=== PATIENT | female | born 1935 | race Caucasian/White ===

== ENCOUNTER 2017-12-13 14:35 | Emergency (ER) | payer MEDICARE, BC | END 2017-12-13 17:21 | disposition home or self-care (01) | LOC: D.ER 14:35 | DX: S40.012A Contusion of left shoulder, initial encounter (principal); S80.02XA Contusion of left knee, initial encounter; S30.0XXA Contusion of lower back and pelvis, initial encounter; S20.212A Contusion of left front wall of thorax, initial encounter; W01.0XXA Fall on same level from slipping, tripping and stumbling without subsequent striking against object, initial encounter; Y93.89 Activity, other specified; Y92.129 Unspecified place in nursing home as the place of occurrence of the external cause; G30.9 Alzheimer's disease, unspecified; F02.80 Dementia in other diseases classified elsewhere, unspecified severity, without behavioral disturbance, psychotic disturbance, mood disturbance, and anxiety; Z86.59 Personal history of other mental and behavioral disorders ==

== ENCOUNTER 2020-03-22 16:06 | Inpatient (IN) | payer MEDICARE, BC ==
[~2020-03-22] VITALS: Ht 170.2 cm; Wt 105.9 kg
--- NOTE | 2020-03-22 16:00 | NUR ---
NEW ADMIT TO DOCTOR HORVATH FROM [facility] FOR YELLING, SCREAMING, AND SWATTING AT OTHER RESIDENTS. PATIENT TRANSPORTED TO [facility] VIA [facility]. UPON ARRIVAL TO UNIT, PATIENT WAS CALM AND COOPERATIVE WITH CARE AND ADMISSION. CONSENTS TO TREAT RECEIVED FROM JUSTYNA RILEY, HILARIA AND DEEPAK. DNR CODE STATUS ALSO RECEIVED FROM JUSTYNA RILEY. CODE WORD GIVEN TO SON. PATIENT ORIENTED TO UNIT, ROOM, AND CALL [facility].
[2020-03-22 16:42] VITALS: BP 154/73
[2020-03-22 18:13] LABS: BILIRUBIN NEGATIVE (NEGATIVE); GLUCOSE NEGATIVE (NEGATIVE); KETONE NEGATIVE (NEGATIVE); NITRITE POSITIVE (NEGATIVE); RED CELLS - URINE OCC /hpf (0-5); UROBILINOGEN NORMAL (NORMAL); WHITE CELLS - URINE 0-5 /hpf (NEGATIVE)
[2020-03-22 18:14] LABS: BACTERIA MANY /hpf (NEGATIVE)
[2020-03-22 20:51] VITALS: BP 160/80
--- NOTE | 2020-03-22 21:06 | NUR ---
RECEIVED IN DAYROOM. SITTING IN A CHAIR WITH PEERS AT HER SIDE. CALM AND COOPERATIVE WITH CARE AND ASSESSMENT. NO SIGNS OF AGGRESSION. REDIRECT AND REORIENT NEEDED. RESTING IN BEDROOM AT THIS TIME. CONTINUE PLAN OF CARE.
[2020-03-22 22:10] VITALS: BP 160/80
[2020-03-22] MEDS ORDERED: DONEPEZIL HCL10 MG PO (22:18)
[2020-03-22] MEDS ORDERED: ZYLOPRIM300 MG PO (22:18)
[2020-03-22] MEDS ORDERED: NORVASC5 MG PO (22:18)
[2020-03-22] MEDS ORDERED: HYDROCHLOROTH12.5 M1 PO (22:19)
[2020-03-22] MEDS ORDERED: XALATAN 0.0052.5 ML EACH EYE (22:20)
[2020-03-22] MEDS ORDERED: MOBIC7.5 MG PO (22:20)
[2020-03-22] MEDS ORDERED: PRAVACHOL20 MG PO (22:21)
[2020-03-22] MEDS ORDERED: VIC-FORTE CAPSUL1 MG PO (22:21)
[2020-03-22] MEDS ORDERED: SEROQUEL50 MG PO (22:22)
[2020-03-22] MEDS ORDERED: SINGULAIR10 MG PO (22:23)
[2020-03-22] MEDS ORDERED: VITAMIN D5000 UNI3 PO (22:25)
[2020-03-22] MEDS ORDERED: LISINOPRIL40 MG PO (22:26)
[2020-03-22] MEDS ORDERED: METOPROLOL TART50 MG PO (22:26)
[2020-03-22] MEDS ORDERED: MUCINEX DM ER1 EAC1 PO (22:28)
[2020-03-22] MEDS ORDERED: STARLIX60 MG PO ×2 (22:36→23:10)
[2020-03-22] MEDS ORDERED: BROMFED-DM COU473 ML PO (22:39)
[2020-03-22] MEDS ORDERED: CHLORASEPTIC177 ML TOPICAL (22:42)
[2020-03-22] MEDS ORDERED: IMODIUM2 MG PO ×2 (22:53→22:58)
[2020-03-22] MEDS ORDERED: KLONOPIN0.5 MG PO (22:59)
[2020-03-22] MEDS ORDERED: NYSTATIN1 PWD TOPICAL (23:01)
[2020-03-22] MEDS ORDERED: PHENERGAN25 M1 PO (23:02)
[2020-03-22] MEDS ORDERED: ACETAMINOPHEN325 MG PO (23:02)
[2020-03-23 08:39] LABS: HEMATOCRIT 36.6 % (36.0-48.0); HEMOGLOBIN 11.8 g/dL (12-16); LYMPHOCYTES 28.9 % (15-50); MCH 28.1 pg (26.0-34.0); MCHC 32.2 g/dL (31.0-37.0); MCV 87.1 fL (80.0-100.0); NEUTROPHILS 64.6 % (40-80); PLATELET COUNT 217 10x3/uL (130-400); RDW 15.4 % (11.5-14.5); WBC 5.2 10x3/uL (4.8-10.8)
[2020-03-23 08:41] VITALS: BP 140/80
[2020-03-23 08:54] LABS: ALBUMIN 3.9 g/dL (3.4-5.0); ALKALINE PHOSPHATASE 61 U/L (30-120); ALT (SGPT) 25 U/L (10-68); BILIRUBIN - TOTAL 0.81 mg/dL (0.2-1.3); CALC OSMOLALITY 294 mosm/kg (275-300); CALCIUM 9.5 mg/dL (8.5-10.1); CARBON DIOXIDE 29.5 mmol/L (21.0-32.0); CHLORIDE - SERUM 106 mmol/L (98-107); CHOL - HDL RATIO 5.1 ratio (2.3-4.1); CHOLESTEROL, TOTAL 192 mg/dL (0-200); CREATININE - SERUM 1.2 mg/dL (0.6-1.3); GLUCOSE 111 mg/dL (74-106); HDL CHOLESTEROL 38 mg/dL (32-96); LDL CHOLESTEROL 130 mg/dL (0-100); LDL-HDL RATIO 3.4 ratio (1.5-3.5); POTASSIUM - SERUM 3.2 mmol/L (3.5-5.1); PROTEIN - SERUM 6.9 g/dL (6.4-8.2); SODIUM 146 mmol/L (136-145); THYROID STIMULATING HORMONE 2.18 uIU/mL (0.36-3.74); TRIGLYCERIDE 120 mg/dL (30-200); UREA NITROGEN 20 mg/dL (7-18); eGFR NON AFRICAN AMERICAN 45 mL/min (90-120)
--- NOTE | 2020-03-23 12:00 | NUR ---
RECEIVED IN HALLWAY OUTSIDE OF NURSES STATION. CALM AND COOPERATIVE WITH CARE AND ASSESSMENT. NO AGGRESSION NOTED. REDIRECT AND REORIENT NEEDED. EATING LUNCH AT THIS TIME. CONTINUE PLAN OF CARE.
[2020-03-23 14:37] VITALS: Ht 170.2 cm; Wt 105.9 kg
--- NOTE | 2020-03-23 19:32 | NUR ---
RECEIVED IN DAYROOM. SITTING IN A CHAIR WITH PEERS AT HER SIDE. CALM AND COOPERATIVE WITH CARE AND ASSESSMENT. NO SIGNS OF AGGRESSION. REDIRECT AND REORIENT NEEDED. CONTINUES TO SIT QUIETLY IN DAYROOM. CONTINUE PLAN OF CARE.
[2020-03-23 20:24] VITALS: BP 151/79
[2020-03-24 07:12] LABS: RAPID PLASMA REAGIN Non Reactive (Non Reactive)
[2020-03-24 08:00] VITALS: BP 120/57
--- NOTE | 2020-03-24 12:00 | NUR ---
RECEIVED IN HALLWAY OUTSIDE OF NURSES STATION. CALM AND COOPERATIVE WITH CARE AND ASSESSMENT. HAS BEEN VERY RUDE AND DISRESPECTFUL TO STAFF AND OTHER PATIENTS. VERY DEMANDING TODAY. REDIRECT AND REORIENT NEEDED. EATING LUNCH AT THIS TIME. CONTINUE PLAN OF CARE.
--- NOTE | 2020-03-24 12:53 | PSY ---
PATIENT NAME:KEVIN RILEY MEDICAL RECORD: [id number] : 39 LOCATION:[facility] ADMISSION DATE: 03/22/20 ACCOUNT: [id number] PSYCHIATRIC EVALUATION DATE OF EVALUATION: 03/23/20 IDENTIFYING DATA: The patient is 84 years old and she is admitted to the hospital on a voluntary basis. CHIEF COMPLAINT: Aggression. HISTORY OF PRESENT ILLNESS: The patient currently lives in the [facility]. She has been very agitated there. She has been screaming and trying to hit other residents. She denies that this happened, although it is clear from the conversation that she really does not have recollection of it. She denies that she would seek to harm herself or others. PAST MEDICAL HISTORY: Significant for diabetes, breast cancer, hysterectomy, dementia. PAST PSYCHIATRIC HISTORY: None by her account. FAMILY HISTORY: Significant for diabetes. ALLERGIES: VALIUM AND LITHIUM. CURRENT MEDICATIONS: Include allopurinol, Norvasc, Aricept, hydrochlorothiazide, Xalatan drops, Mobic, Pravachol, Seroquel, Singulair, vitamin D, lisinopril, Lopressor, Imodium, Klonopin, Nystatin, Phenergan, Tylenol, and Starlix. SOCIAL HISTORY: The patient lives in an assisted living center. She is unmarried, but has an adult son who is involved with her care. She has no history of alcohol or drug use and is a former cigarette smoker. MENTAL STATUS EXAMINATION: The patient is awake, alert and oriented to person and place, but not to time or situation. Her mood is anxious. Her affect is constricted. Thought processes are circumstantial. Memory, concentration, and abstraction abilities are moderately impaired and she denies any intent to harm herself or others as well as active psychotic symptoms. ASSETS: Supportive family members. LIABILITIES: Limited insight. DIAGNOSTIC IMPRESSION: AXIS I: Major neurocognitive disorder of the Alzheimer's type with behavioral disturbances. AXIS II: None. AXIS III: Hypertension, gout, osteoarthritis, diabetes, chronic obstructive pulmonary disease, glaucoma, dyslipidemia and vitamin D deficiency. AXIS IV: Moderate. AXIS V: 35. PLAN: At this time, the patient is admitted to the hospital secondary to aggressive violent behavior associated with a dementing illness. She will be treated with both mood stabilizing and memory enhancing medications. Her long-term prognosis is guarded. TRANSINT:[id number] Voice Confirmation ID: [id number] DOCUMENT ID: [id number] ANDRIA HORVATH MD at 1253 CC: [id number] DICTATION DATE: 03/23/20 1246 COMMUNICATION ASSISTANT: 03/23/20 1304 ADM IN [facility] [address] [place] [address]
--- NOTE | 2020-03-24 19:00 | NUR ---
PATIENT VERY ANXIOUS AND DELUSIONAL. 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 YELLING CONTINUOUSLY AT STAFF. BEING RUDE TO STAFF AND ALL OTHER PATIENTS. STARTING ARGUMENTS WITH OTHER PATIENTS AND GETTING THEM WORKED UP. SWATTING AT OTHER PATIENTS. UNABLE TO BE REDIRECTED. PRN ATIVAN 0.5 MG IM GIVEN FOR ANXIETY. PRN HALDOL 2 MG GIVEN FOR PSYCHOTIC UNSAFE BEHAVIOR.
[2020-03-24 20:06] VITALS: BP 123/64
--- NOTE | 2020-03-24 23:23 | NUR ---
B.) PT IS ALERT AND ORIENTED TO SELF, PLACE AND TIME. SHE IS RECEIVED IN THE DAYROOM. SHE USES A WHEELCHAIR TO ASSIST WITH AMBULATION. SHE IS CALM AND COOPERATIVE WITH STAFF. SHE IS ABLE TO MAKE HER NEEDS KNOWN. I.) PROVIDED PM MEDICATIONS PRESCRIBED. REDIRECT NEEDED. R.) COMPLIANT WITH ALL MEDICATIONS. EASY TO REDIRECT. P.) WILL CONTINUE TO MONITOR.
[2020-03-25 10:39] VITALS: BP 129/72
--- NOTE | 2020-03-25 12:00 | NUR ---
RECEIVED IN HALLWAY OUTSIDE OF NURSES STATION. CALM AND COOPERATIVE WITH CARE AND ASSESSMENT. NO AGGRESSION OR ARGUMENTATIVE BEHAVIORS TODAY. REDIRECT AND REORIENT NEEDED. EATING LUNCH AT THIS TIME. CONTINUE PLAN OF CARE.
--- NOTE | 2020-03-25 14:29 | NUR ---
Nutrition Follow-up: Fluctuating PO intake. Ate 35-100% of meals yesterday. Diet: Regular PO intake: 66% avg x 6 meals Wt: 231# (03/22) Last BM: 03/24 No new labs Meds noted: Micro K, HCTZ, vitamin D -Encourage PO intake and honor food preferences. -Offer nutrition supplements. -Monitor wt. -RD following.
--- NOTE | 2020-03-25 14:44 | PN ---
PATIENT:KEVIN RILEY MEDICAL RECORD: [id number] LOCATION:[facility] ADMISSION DATE: 03/22/20 PROGRESS NOTE DATE OF SERVICE: 03/24/2020 SUBJECTIVE: The patient's case was discussed with staff. She has no new complaint. OBJECTIVE: The patient is in good behavioral control. She has fairly limited insight about her situation. She is tolerating her medications well. ASSESSMENT: Dementia. PLAN: The patient will be treated with a slightly lower dose of Seroquel. She will be given 25 mg at bedtime rather than 50. I think this will be adequate to assist with her thought disorganization and behaviors. TRANSINT:[id number] Voice Confirmation ID: [id number] DOCUMENT ID: [id number] ANDRIA HORVATH MD at 1444 CC: [id number] DICTATION DATE: 03/24/20 1614 TIN CAN LABORER: 03/24/20 1645 ADM IN [place] [id number] [place] [id number]
[2020-03-25 20:00] VITALS: BP 151/78
--- NOTE | 2020-03-25 22:58 | NUR ---
B)RECEIVED PATIENT LYING IN BED. ORIENTED TO SELF ONLY. CALM AND COOPERATIVE. DELUSIONAL ASKING "HOW'S ROSALINDA? HAVE YOU CHECKED ON ROSALINDA? HE WENT HOME TO CHECK ON THINGS."RELATES SHE IS AT "[employer]." I)ADMINISTER MEDS AND MONITOR COMPLIANCE. REORIENT NEEDED. R)MED COMPLIANT. POOR REORIENTATION DUE TO IMPAIRED ABILITY TO SEPARATE REALITY FROM FANTASY. P)CONTINUE POC AND PROVIDE SAFE ENVIRONMENT.
[2020-03-26 09:41] VITALS: BP 142/78
--- NOTE | 2020-03-26 11:49 | NUR ---
The patient is awake and she is pleasant, she has not shown any aggression today, she is not yelling or screaming. She c/o dizziness, and fullness in her ears. Caitlin Solis APN ordered her some meds to take care of it. She sits in a w/c, and self propels, she can stand and transfer. Provide prescribed meds. The patient is compliant with meds. Continue POC.
--- NOTE | 2020-03-26 13:47 | PN ---
PATIENT:KEVIN RILEY MEDICAL RECORD: [id number] LOCATION:[facility]112 ADMISSION DATE: 03/22/20 PROGRESS NOTE DATE OF SERVICE: 03/25/2020 SUBJECTIVE: The patient's case was discussed with staff. She has no new complaint. OBJECTIVE: The patient is in good behavioral control with limited insight about her situation. ASSESSMENT: Dementia. PLAN: Current medicines have been reviewed and will be maintained. Long-term prognosis is guarded. TRANSINT:[id number] Voice Confirmation ID: [id number] DOCUMENT ID: [id number] ANDRIA HORVATH MD at 1347 CC: [id number] DICTATION DATE: 03/25/20 1457 SENIOR REVENUE ACCOUNTANT: 03/25/20 2108 ADM IN [place] [id number] [place] [address]
[2020-03-26 20:00] VITALS: BP 169/61
--- NOTE | 2020-03-26 20:18 | NUR ---
PATIENT HAS A BRIGHT AFFECT, SMILING, LAUGHS OFTEN, VERY CONFUSED, SHE THOUGHT THE NEW ADMISSION "MALE" WAS HER . MAKES NEEDS KNOWN, COMPLIANT WITH MEDS, NO ADVERSE REATION NOTED. WILL FOLLOW POC
--- NOTE | 2020-03-27 07:35 | NUR ---
The patient is awake and she is pleasant, she has poor insight into her situation and she makes some comments that she believes are true. She points at another patient and she says "Watch him, he'll steal everything from you." She self propels in the w/c. She has not shown any aggression, but she is delusional. Provide prescribed meds. The patient is compliant with meds. Continue POC.
[2020-03-27 09:03] VITALS: BP 126/70
--- NOTE | 2020-03-27 12:44 | PN ---
PATIENT:KEVIN RILEY MEDICAL RECORD: [id number] LOCATION:[facility]112 ADMISSION DATE: 03/22/20 PROGRESS NOTE DATE OF SERVICE: 03/26/2020 SUBJECTIVE: The patient's case was discussed with staff. She has no new complaint. OBJECTIVE: The patient is partially oriented. Her mood is flat. Her affect is constricted. Thought processes are circumstantial. Memory, concentration, and abstraction abilities are moderately impaired. ASSESSMENT: Dementia. PLAN: Current medicines have been reviewed. I am going to discontinue the meclizine because of its antihistaminic properties. I am going to start her on Namenda for its memory enhancing properties. TRANSINT:[id number] Voice Confirmation ID: [id number] DOCUMENT ID: [id number] ANDRIA HORVATH MD at 1244 CC: [id number] DICTATION DATE: 03/26/20 1432 WATER PROJECT ENGINEER: 03/26/[address] [facility] [address] [place] [address]
[2020-03-27 20:00] VITALS: BP 163/61
--- NOTE | 2020-03-27 23:24 | NUR ---
B)RECEIVED PATIENT SITTING IN THE DAYROOM. CONFUSED AND DISORIENTED. DELUSIONAL RELATING "[place]. WE COME OVER EVERY ONCE IN A WHILE TO SHAFFER. I WON $65 DOLLARS ONCE." PLEASANT. LAUGHS INAPPROPRIATELY. I)ADMINISTER MEDS AND MONITOR COMPLIANCE. REORIENT NEEDED. R)MED COMPLIANT. POOR REORIENTATION DUE TO IMPAIRED ABILITY TO COMPREHEND, PROCESS AND RETAIN INFORMATION. P)CONTINUE POC AND PROVIDE SAFE ENVIRONMENT.
[2020-03-28 09:33] VITALS: BP 156/57
--- NOTE | 2020-03-28 10:03 | PN ---
PATIENT:KEVIN RILEY MEDICAL RECORD: [id number] LOCATION:[facility]112 ADMISSION DATE: 03/22/20 PROGRESS NOTE DATE OF SERVICE: 03/27/2020 SUBJECTIVE: The patient's case was discussed with staff. She has no new complaint. OBJECTIVE: The patient is only partially oriented. She is disorganized in her thought processes. She denies that she would seek to harm herself or others. ASSESSMENT: Dementia. PLAN: Current medicines have been reviewed and will be maintained. Both supportive and educational interventions were made. TRANSINT:[id number] Voice Confirmation ID: [id number] DOCUMENT ID: [id number] ANDRIA HORVATH MD at 1003 CC: [id number] DICTATION DATE: 03/27/20 1404 HYDRO PNEUMATIC TESTER: 03/27/20 1759 ADM IN [facility] [address] [place] [address]
--- NOTE | 2020-03-28 12:00 | NUR ---
RECEIVED IN HALLWAY OUTSIDE OF NURSES STATION. ANXIOUS. AGITATED. ARGUMENTATIVE WITH STAFF AND OTHER PATIENTS. THREATING TO FIRE STAFF. REDIRECT AND REORIENT NEEDED. EATING LUNCH AT THIS TIME. CONTINUE PLAN OF CARE.
[2020-03-28 20:00] VITALS: BP 158/69
--- NOTE | 2020-03-28 20:01 | NUR ---
RECEIVED IN DAYROOM. SITTING CALMLY IN A CHAIR DURING EVENING GROUP. CALM AND COOPERATIVE WITH CARE AND ASSESSMENT. NO SIGNS OF AGGRESSION. REDIRECT AND REORIENT NEEDED. CONTINUES TO SIT CALMLY IN DAYROOM. CONTINUE PLAN OF CARE.
[2020-03-29 09:39] VITALS: BP 146/50
--- NOTE | 2020-03-29 12:00 | NUR ---
RECEIVED IN HALLWAY OUTSIDE OF NURSES STATION. CALM AND COOPERATIVE WITH CARE AND ASSESSMENT. NO BEHAVIORS TODAY. REDIRECT AND REORIENT NEEDED. EATING LUNCH AT THIS TIME. CONTINUE PLAN OF CARE.
--- NOTE | 2020-03-29 13:21 | PN ---
PATIENT:KEVIN RILEY MEDICAL RECORD: [id number] LOCATION:[facility] ADMISSION DATE: 03/22/20 PROGRESS NOTE DATE OF SERVICE: 03/28/2020 SUBJECTIVE: The patient's case was discussed with staff. She has no new complaint. OBJECTIVE: The patient is eating and sleeping reasonably well. She continues to say things that are confused, but she is not nearly as angry as she has previously been. She is cooperative when efforts are made to redirect her. ASSESSMENT: Dementia. PLAN: Current medicines have been reviewed and will be maintained. Long-term prognosis is guarded. TRANSINT:[id number] Voice Confirmation ID: [id number] DOCUMENT ID: [id number] ANDRIA HORVATH MD at 1321 CC: [id number] DICTATION DATE: 03/28/20 1146 MAKE UP EDITOR: 03/28/20 1641 ADM IN [facility] [address] [place] [id number]
--- NOTE | 2020-03-29 19:47 | NUR ---
RECEIVED IN DAYROOM. SITTING IN A CHAIR WITH PEERS AT HER SIDE. CALM AND COOPERATIVE WITH CARE AND ASSESSMENT. NO SIGNS OF AGGRESSION. REDIRECT AND REORIENT NEEDED. RESTING IN BED WITH EYES OPEN AT THIS TIME. CONTINUE PLAN OF CARE.
[2020-03-29 19:49] VITALS: BP 136/58
[2020-03-30 08:09] VITALS: BP 156/63
--- NOTE | 2020-03-30 12:00 | NUR ---
RECEIVED IN HALLWAY OUTSIDE OF NURSES STATION. CALM AND COOPERATIVE WITH CARE AND ASSESSMENT. NO BEHAVIORS TODAY. IN A PLEASANT MOOD. REDIRECT AND REORIENT NEEDED. EATING LUNCH AT THIS TIME. CONTINUE PLAN OF CARE.
--- NOTE | 2020-03-30 13:18 | PN ---
PATIENT:KEVIN RILEY MEDICAL RECORD: [id number] LOCATION:[facility] ADMISSION DATE: 03/22/20 PROGRESS NOTE DATE OF SERVICE: 03/29/2020 SUBJECTIVE: The patient's case was discussed with staff. She has no new complaint. OBJECTIVE: The patient slept well last night and ate well yesterday. She is calm and cooperative today with no significant agitation present. She is quite confused and requires a great deal of redirection from staff along with support for her confused behaviors. ASSESSMENT: Dementia. PLAN: Current medicines have been reviewed and will be maintained. This patient does need 71-wyta-o-day supervision. At this point the least restrictive environment is still being sought. TRANSINT:[id number] Voice Confirmation ID: [id number] DOCUMENT ID: [id number] ANDRIA HORVATH MD at 1318 CC: [id number] DICTATION DATE: 03/29/20 1528 HEALTH CARE COACH: 03/29/20 2249 ADM IN [facility] [address] [place] [address]
--- NOTE | 2020-03-30 15:28 | NUR ---
YIN ALERTED SON, ELSY, OF PT'S DISCHARGE PLANS FOR TOMORROW. PT WILL RETURN BACK TO [place].
[2020-03-30] MEDS ORDERED: AUGMENTIN 875-11 TAB PO (15:51)
[2020-03-30] MEDS ORDERED: SEROQUEL25 MG PO (15:52)
[2020-03-30] MEDS ORDERED: K-TAB10 MEQ PO (15:52)
[2020-03-30] MEDS ORDERED: NAMENDA5 MG PO (15:52)
[2020-03-30] MEDS ORDERED: Vitamin D PO (15:53)
[2020-03-30] MEDS ORDERED: FLORAJEN3 CAPS460 MG PO (15:53)
[2020-03-30 20:11] VITALS: BP 164/66
--- NOTE | 2020-03-30 20:19 | NUR ---
RECEIVED IN DAYROOM. SITTING IN A CHAIR WITH PEERS AT HER SIDE. CALM AND COOPERATIVE WITH CARE AND ASSESSMENT. NO SIGNS OF AGGRESSION. REDIRECT AND REORIENT NEEDED. CONTINUES TO SIT CALMLY IN DAYROOM. CONTINUE PLAN OF CAER.
[2020-03-31 08:36] VITALS: BP 139/62
--- NOTE | 2020-03-31 09:20 | NUR ---
PT SITTING AT TABLE WITH PEERS AT THIS TIME EATING BREAKFAST. PT IS ALERT AND ORIENTED TO SELF ONLY. CONFUSION NOTED. PT IS PLESANT WITH STAFF AND PEERS. COMPLIANT WITH MEDS, VITALS AND ASSESSMENT. PT CAN MAKE NEEDS KNOWN. ASSIST 1X WITH ADLS. NO BEHAVIORS REPORTED FROM PREVIOUS SHIFT. NO NOTED BEHAVIORS THIS SHIFT. CHAIR ALARM IN PLACE AND ACTIVE. WILL CONT PLAN OF CARE.
--- NOTE | 2020-03-31 10:12 | NUR ---
SW DID CHART AUDIT AND BIOPSYCHOSOCIAL WAS COMPLETED ON 03/23 AT 11AM WAS NOT IN ELECTRONIC FILE. PAPER ASSESSMENT WAS PLACED IN CHART FOR RECORD.
--- NOTE | 2020-03-31 12:50 | NUR ---
REPORT CALLED TO [facility] TO [facility]. PAPERWORK FAXED TO NUMBER PROVIDED FROM [facility]. PT D/C WEIGHT OBTAINED AND CHARTED. PAPER COPY TO BE SENT WITH PT AT DISCHARGE. PT BELONGINGS PACKED AND LABELED FOR D/C. WILL AWAIT ARRIVAL OF FACILITY TO D/C.
--- NOTE | 2020-03-31 13:35 | PN ---
PATIENT:KEVIN RILEY MEDICAL RECORD: [id number] LOCATION:[facility] ADMISSION DATE: 03/22/20 PROGRESS NOTE DATE OF SERVICE: 03/30/2020 SUBJECTIVE: The patient's case was discussed with staff. She has no new complaint. OBJECTIVE: The patient is in good behavioral control with poor insight about her situation. She is cooperative. She is sleeping and eating well. ASSESSMENT: Dementia. PLAN: The patient will be transitioned out of the hospital tomorrow. She is going to be going to [facility]. TRANSINT:[id number] Voice Confirmation ID: [id number] DOCUMENT ID: [id number] ANDRIA HORVATH MD at 1335 CC: [id number] DICTATION DATE: 03/30/20 1550 PUBLIC HEALTH DIETITIAN: 03/31/20 0058 ADM IN [facility] [address] [place] [address]
--- NOTE | 2020-04-01 14:01 | DS ---
PATIENT:KEVIN RILEY :39 MEDICAL RECORD: [id number] DISCHARGE SUMMARY ADMISSION DATE: 03/22/20 DISCHARGE DATE: 03/31/20 IDENTIFYING DATA: The patient is 84 years old and she was admitted to the hospital on a voluntary basis secondary to aggression. CHIEF COMPLAINT: None. HISTORY OF PRESENT ILLNESS: The patient lives in the [facility]. She has been agitated there and has been screaming and hitting other residents. She had no recollection of these events and she was admitted to the hospital for evaluation and treatment of these symptoms. HOSPITAL COURSE: The patient was admitted to the hospital and fully evaluated from both a medical, psychological, and social standpoint. She was treated with both mood stabilizing and memory enhancing medications. She showed significant improvement through the course of her hospitalization and was subsequently transitioned back to the [facility]. DISCHARGE DIAGNOSES: AXIS I: Major neurocognitive disorder of the Alzheimer's type with behavioral disturbances. AXIS II: None. AXIS III: Hypertension, gout, osteoarthritis, diabetes, chronic obstructive pulmonary disease, glaucoma, hyperlipidemia and vitamin D deficiency. AXIS IV: Moderate. AXIS V: Global assessment of functioning is 40. PLAN: At the time of discharge, the patient was in good behavioral control and had no active thoughts of harming herself or others. She was tolerating her medications well. Her long-term prognosis is guarded. Follow up will be with her primary care physician. TRANSINT:[id number] Voice Confirmation ID: [id number] DOCUMENT ID: [id number] ANDRIA HORVATH MD at 1401 CC: [id number] DICTATION DATE: 03/31/20 1546 LEATHER FLESHER: 04/01/20 0337 DIS IN 03/31/20 [place] [id number] [place] [address]
== END 2020-03-31 13:15 | DRG 57 ==
LOC: D.PSYCH 16:06
PROVIDERS: ADMIT Psychiatry & Neurology Psychiatry; ATTEND Psychiatry & Neurology Psychiatry
DX: G30.9 Alzheimer's disease, unspecified (principal); F02.81 Dementia in other diseases classified elsewhere, unspecified severity, with behavioral disturbance; N39.0 Urinary tract infection, site not specified; I10 Essential (primary) hypertension; M10.9 Gout, unspecified; M19.90 Unspecified osteoarthritis, unspecified site; E11.9 Type 2 diabetes mellitus without complications; J44.9 Chronic obstructive pulmonary disease, unspecified; H40.9 Unspecified glaucoma; E78.5 Hyperlipidemia, unspecified; E55.9 Vitamin D deficiency, unspecified; E87.6 Hypokalemia; R42 Dizziness and giddiness; H61.22 Impacted cerumen, left ear

== ENCOUNTER 2020-05-20 12:41 | Emergency (ER) | payer MEDICARE, BC ==
[~2020-05-20] VITALS: Ht 170.2 cm; Wt 63.6 kg
[~2020-05-20 12:41] MED LIST: ACETAMINOPHEN325 MG PO; AUGMENTIN 875-11 TAB PO; BROMFED-DM COU473 ML PO; CHLORASEPTIC177 ML TOPICAL; DONEPEZIL HCL10 MG PO; FLORAJEN3 CAPS460 MG PO; HYDROCHLOROTH12.5 M1 PO; IMODIUM2 MG PO; K-TAB10 MEQ PO; KLONOPIN0.5 MG PO; LISINOPRIL40 MG PO; METOPROLOL TART50 MG PO; MOBIC7.5 MG PO; MUCINEX DM ER1 EAC1 PO; NAMENDA5 MG PO; NORVASC5 MG PO; NYSTATIN1 PWD TOPICAL; PHENERGAN25 M1 PO; PRAVACHOL20 MG PO; SEROQUEL25 MG PO; SEROQUEL50 MG PO; SINGULAIR10 MG PO; STARLIX60 MG PO; VIC-FORTE CAPSUL1 MG PO; VITAMIN D5000 UNI3 PO; Vitamin D PO; XALATAN 0.0052.5 ML EACH EYE; ZYLOPRIM300 MG PO
[2020-05-20 12:45] VITALS: Ht 170.2 cm; Wt 63.6 kg
[2020-05-20] MEDS ORDERED: PHENERGAN25 M1 PO (13:11)
[2020-05-20] MEDS ORDERED: VITAMIN D1000 UNIT PO (13:15)
[2020-05-20 13:22] LABS: BASOPHILS 0.4 % (0-2); EOSINOPHILS 2.5 % (0-7); HEMATOCRIT 36.1 % (36.0-48.0); HEMOGLOBIN 11.7 g/dL (12-16); IMMATURE GRANULOCYTES 0.2 % (0-5); LYMPHOCYTES 20.5 % (15-50); MCH 27.9 pg (26.0-34.0); MCHC 32.4 g/dL (31.0-37.0); MEAN PLATELET VOLUME 10.6 fL (7.4-10.4); MONOCYTES 4.3 % (2-11); NEUTROPHILS 72.1 % (40-80); PLATELET COUNT 176 10x3/uL (130-400); RDW 14.9 % (11.5-14.5); WBC 5.6 10x3/uL (4.8-10.8)
[2020-05-20 13:27] LABS: ANION GAP 9.7 mmol/L (8-16); CALCIUM 9.1 mg/dL (8.5-10.1); CREATININE - SERUM 1.4 mg/dL (0.6-1.3); POTASSIUM - SERUM 3.7 mmol/L (3.5-5.1)
[2020-05-20 13:33] LABS: ALBUMIN 3.4 g/dL (3.4-5.0); BILIRUBIN - TOTAL 0.58 mg/dL (0.2-1.3); PROTEIN - SERUM 6.5 g/dL (6.4-8.2)
[2020-05-20 14:35] LABS: BILIRUBIN NEGATIVE (NEGATIVE); GLUCOSE NEGATIVE (NEGATIVE); KETONE NEGATIVE (NEGATIVE); NITRITE NEGATIVE (NEGATIVE); UROBILINOGEN NORMAL (NORMAL)
[2020-05-20 14:47] VITALS: BP 172/74
== END 2020-05-20 16:30 | disposition home or self-care (01) ==
LOC: D.ER 12:41
PROVIDERS: Family Medicine
DX: R42 Dizziness and giddiness (principal); G30.9 Alzheimer's disease, unspecified; F02.80 Dementia in other diseases classified elsewhere, unspecified severity, without behavioral disturbance, psychotic disturbance, mood disturbance, and anxiety; W19.XXXA Unspecified fall, initial encounter; Y93.9 Activity, unspecified; Y92.9 Unspecified place or not applicable; E11.9 Type 2 diabetes mellitus without complications; E78.5 Hyperlipidemia, unspecified; I10 Essential (primary) hypertension